=== PATIENT | female | born 1980 | race Caucasian/White ===

== ENCOUNTER 2019-07-31 08:14 | Outpatient (CLI) | payer BC, SELFPAY ==
--- NOTE | 2019-07-31 08:22 | CT_ITS ---
WS: [id number] CT TEMPORAL BONES TECHNIQUE: Noncontrast CT of the temporal bones with coronal and sagittal reformatted images. CLINICAL INFORMATION: CEREBROSPINAL FLUID LEAK COMPARISON: None. DLP: 786.[address] scans at [facility] use at least one of these dose optimization techniques: automat ed exposure control; mA and/or kV adjustment per patient size (includes targeted exams where dose is matched to clinical indication); or iterative reconstruction. FINDINGS: RIGHT: Mastoid air cells are well aerated. Normal external auditory canal. Ossicles are normal in appearance . Middle ear is well aerated. Normal tegmen tympani. Semicircular canals and cochlea are normal in ap pearance. Prussak's space is normal. Normal inner ear structures. Normal vestibular aqueduct. Facial nerve recess is normal. LEFT: Small amount mucosal thickening left posterior mastoid air cells. Normal external auditory canal. Oss icles are normal in appearance. Middle ear is well aerated. Normal tegmen tympani. Semicircular canal s and cochlea are normal in appearance. Prussak's space is normal. Normal inner ear structures. Jeanie l vestibular aqueduct. Facial nerve recess is normal. CT/CT temporal bone wo con* [id number] IMPRESSION: 1. Mastoid air cells are well aerated bilaterally. Trace mucosal thickening le ft mastoid air cells. 2. Middle ears well aerated. Ossicles are normal. 3. Normal scutum bilaterally. 4. Normal tegmen tympani bilaterally. 5. Normal inner ear structures. 6. Pneumatization of the petrous apex bilaterally.
--- NOTE | 2019-07-31 08:22 | CT_ITS ---
WS: [id number] CT SINUSES TECHNIQUE: Noncontrast CT of the paranasal sinuses with coronal and sagittal reformatted images. CLINICAL INFORMATION: OTHER DISORDERS OF THE NOSE AND NASAL SINUS COMPARISON: None. DLP: 338.[address] scans at [facility] use at least one of these dose optimization techniques: automat ed exposure control; mA and/or kV adjustment per patient size (includes targeted exams where dose is matched to clinical indication); or iterative reconstruction. FINDINGS: Right left nasal septal deviation measuring 4 to 5 mm with a leftward directed spur. Frontal sinuses are well aerated. Tiny retention cyst in the left frontal ethmoidal recess. Mastoid air cells well ae rated. Ethmoid air cells and sphenoid sinuses are well aerated. Maxillary sinuses are well aerated. M ild narrowing of the ostiomeatal units bilaterally which remain patent. Normal posterior nasopharynx. Partially visualized intracranial contents are unremarkable. CT/CT sinus wo con* [id number] IMPRESSION: 1. Right to left nasal septal deviation measuring 4 to 5 mm with a leftward di rected spur. 2. Paranasal sinuses and mastoid air cells are well aerated. 3. Tiny retention cyst left frontal ethmoidal recess. 4. Mild narrowing of the ostiomeatal regions bilaterally which remain patent.
== END 2019-07-31 08:15 | disposition home or self-care (01) ==
LOC: RADWPI 08:17
PROVIDERS: Family Provider Family Medicine; PCP Family Medicine; Visit Provider Specialist
DX: G96.0 Cerebrospinal fluid leak (principal); J34.89 Other specified disorders of nose and nasal sinuses; J34.2 Deviated nasal septum
CPT/HCPCS: 70480; 70486

== ENCOUNTER 2019-12-22 07:40 | Outpatient (CLI) | payer BC, SELFPAY ==
--- NOTE | 2019-12-22 07:47 | MM_ITS ---
WS: [id number] Bilateral screening digital mammogram, 12/22/2019 Clinical Data: SCREENING Comparison: None. Findings: The breast parenchymal pattern shows heterogeneous density No spiculated masses or clustered calcific ations are seen. There are no secondary signs of carcinoma. MM/[place] [id number] Impression: 1. Negative bilateral mammogram. 2. Recommend annual screening mammograms. BIRADS: 1-Negative FOLLOW UP: 1 Year Follow-up The CAD linen checker was used.
== END 2019-12-22 07:41 | disposition home or self-care (01) ==
PROVIDERS: PCP Family Medicine; Visit Provider Family Medicine
DX: Z12.31 Encounter for screening mammogram for malignant neoplasm of breast (principal)
CPT/HCPCS: 77067

== ENCOUNTER 2021-09-05 06:57 | Outpatient (CLI) | payer BC, SELFPAY ==
--- NOTE | 2021-09-05 07:20 | MM_ITS ---
WS: [id number] BILATERAL SCREENING DIGITAL BREAST TOMOSYNTHESIS MAMMOGRAM WITH CAD HISTORY: SCREENING COMPARISON: 12/22/2019 Bilateral CC and MLO views with tomosynthesis and synthetic mammography submitted. Computer aided det ection analyzed. Breast composition: The breasts are heterogeneously dense, which may obscure small masses. No suspici ous masses, microcalcifications or architectural distortion. Benign coarse calcification 6:00 RIGHT b reast. MM/[place] [id number] IMPRESSION: BI-RADS: 2-Benign FOLLOW UP: 1 Year Follow-up
== END 2021-09-05 06:58 | disposition home or self-care (01) ==
LOC: RAD 06:58
PROVIDERS: PCP Family Medicine; Visit Provider Clinical Nurse Specialist Adult Health
DX: Z12.31 Encounter for screening mammogram for malignant neoplasm of breast (principal)
CPT/HCPCS: 77063; 77067

== ENCOUNTER 2022-09-08 07:59 | Outpatient (CLI) | payer BC, SELFPAY ==
--- NOTE | 2022-09-08 | MM_ITS ---
WS: [id number] VIEWS: MLO and CC views both breasts. 3D digital tomosynthesis is also included in this exam. Comparison made with prior exam of 12/22/2019 and 09/05/2021. Findings: There was no sign of mass, architectural distortion or suspicious calcification in either breast. Th e breasts are heterogeneously dense which may obscure small masses MM/[place] [id number] Impression: BI-RADS: 2-Benign finding. FOLLOW-UP: 1 Year Follow-up This mammogram was also analyzed by the Computer Aided Detection System [employer].
== END 2022-09-08 08:00 | disposition home or self-care (01) ==
PROVIDERS: PCP Family Medicine; Visit Provider Family Medicine
DX: Z12.31 Encounter for screening mammogram for malignant neoplasm of breast (principal)
CPT/HCPCS: 77063; 77067

== ENCOUNTER 2024-04-21 08:51 | Outpatient (CLI) | payer BC, SELFPAY ==
--- NOTE | 2024-04-21 08:56 | MM_ITS ---
WS: [id number] BILATERAL SCREENING DIGITAL TOMOSYNTHESIS MAMMOGRAM WITH CAD HISTORY: SCREENING COMPARISON: 09/08/2022, 09/05/2021, 12/22/2019 Bilateral CC and MLO views with tomosynthesis and synthetic mammography submitted. Computer aided detection analyzed. Breast composition: The breasts are heterogeneously dense, which may obscure small masses. No suspicious masses, microcalcifications or architectural distortion. Benign calcifications posterior RIGHT breast. MM/MM scr BI tomosynthesis [id number] IMPRESSION: BI-RADS: 2 - Benign FOLLOW UP: 1 Year Follow-up
== END 2024-04-21 08:52 | disposition home or self-care (01) ==
LOC: RAD 08:52
PROVIDERS: PCP Family Medicine; Visit Provider Family Medicine
DX: Z12.31 Encounter for screening mammogram for malignant neoplasm of breast (principal); R92.333 Mammographic heterogeneous density, bilateral breasts; R92.1 Mammographic calcification found on diagnostic imaging of breast
CPT/HCPCS: 77063; 77067

== ENCOUNTER 2024-11-20 09:43 | Day surgery (SDC) | payer BC, SELFPAY ==
[2024-11-20] VITALS (9 sets, daily range): BP systolic 101–117; BP diastolic 56–66; PULSE 54–81; RESP 14–18; TEMP 36.1–36.9; O2SAT 97–99; BMI 27.4
[2024-11-20] MEDS: acetaminophen 1,000 MG/100 ML PIGGYBACK 400 MG IV (10:20)
--- NOTE | 2024-11-20 10:43 | P.HPUD_ITS ---
Surgery/Procedure H&P Update DATE OF PROCEDURE: November 20, 2024 DATE H&P PERFORMED: 11/16/24 H&P UPDATE INFORMATION: I have reviewed H&P completed within last 30 days, I have examined patient prior to procedure, No changes to prior documentation, H&P is in [facility] EMR on date indicated and Risks and benefits of the procedure reviewed PREOP DIAGNOSIS: Left distal fibular fracture PLANNED PROCEDURE: Operation Date: 11/20/24 11:15 Proposed Procedures p ORIF Ankle ORIF Distal Fibula(Left) - Van Rhodes DPM s Ankle Arthroscopy(Left) - Van Rhodes DPM
[2024-11-20] MEDS: ceFAZolin 2,000 mg SDV 2000 MG IVP (10:50)
--- NOTE | 2024-11-20 11:21 | XR_ITS ---
WS: [id number] INTRAOPERATIVE TECHNIQUE: 3 Spot fluoroscopic images for intraoperative purposes. FLUOROSCOPY TIME: 1 minute 27 seconds CLINICAL INFORMATION: Left ankle arthroscopy, left ankle ORIF distal fibula FINDINGS: Intraoperative plate and screw fixation fibula XR/XR ankle LT 2V [id number] IMPRESSION: Images obtained for intraoperative purposes.
[2024-11-20] MEDS: BUPivacaine 0.5% INJ 30 mL INJECTION (11:24)
--- NOTE | 2024-11-20 11:57 | ANES.PROC ---
Anesthesia Procedures Procedure/Date: 11/20/24 Nerve Block ^: Nerve Block 1: Main Anesthesia: general anesthesia Time Out Performed: Yes Consent: requested by attending/covering physician and from patient Laterality: Left Nerve block location: popliteal Anesthesia monitors applied: pulse oximetry, EKG, BP cuff and oxygen Nerve block position: supine Anesthetic Used: ropivicaine 0.5% Amount of anesthesia used (mL): 25 Ultrasound used to: recognize landmarks Nerve Stimulator Used?: Yes Interscalene/Femoral BLK: other needle (pjunk 4inch) Injection: neg aspiration of heme Patient Tolerated Procedure: well Complications: none Additional Comments: decadron 4mg added to block
--- NOTE | 2024-11-20 12:15 | P.BOP_ITS ---
Date of procedure: 11/20/24 Surgeon name: Dr. Van Rhodes, DPM Conference And Event Organiser(s) name(s): Montserrat Lawler Procedure(s) performed: Left ankle arthroscopy, left ankle ORIF distal fibula Description of findings: Left distal fibular fracture Estimated blood loss: 5cc Tourniquet time: 55 minutes Specimen(s) removed: none Post-operative diagnosis: left distal fibular fracture
--- NOTE | 2024-11-20 13:34 | ANE.PACU2 ---
Inpatient post-anesthesia follow up: Airway intact: Yes Vital signs: Temperature 97.2 F Pulse Rate 55 Respiratory Rate 17 Blood Pressure 101/59 Pulse Oximetry 97 Oxygen Delivery Me thod Room Air Oxygen Flow Rate Fraction of Inspir ed Oxygen Hydration adequate: Yes Nausea and vomiting: No Pain level: 1 Mental status: Baseline
--- NOTE | 2024-11-20 19:19 | P.OP_ITS ---
Operative Report Date of procedure: November 20, 2024 Surgeon: Van Rhodes DPM Procedure: Date of procedure: 11/20/2024 Pre-op diagnosis: Left ankle distal fibula fracture Post-op diagnosis: Same Post-op findings: No intra-articular loose body or osteochondral defect Procedure done: 1. ORIF left distal fibula CPT 68356 2. Left ankle arthroscopy CPT 85510 Implants: Anatomic fibular plate [employer] with corresponding locking and nonlocking screws Specimens removed: None Surgeon: Dr. Van Rhodes DPM Enrichment Assistant: Montserrat Lawler Estimated blood loss: 5 cc Tourniquet time: 55 minutes Complications: None Patient is a 44-year-old female that has a history of left distal fibula fracture. The extent of the injury warrants surgical intervention. A lengthy discussion regarding the procedure, including risks and complications has been had with the patient and is noted in the recent clinic note. Written and verbal consent have been obtained. All patient questions have been answered to the patient?s satisfaction. No written or verbal guarantees have been given or implied. The patient has been NPO since midnight. The history has been reviewed and the history and physical is current. The signed consent was confirmed and placed in the patient chart. Patient imaging has been reviewed and is consistent with the diagnosis. Under mild sedation, the patient was brought into the operating room and placed on the table in the supine position. IV antibiotics were given by the anesthesia team as preoperative surgical prophylaxis. General sedation was then performed by the anesthesiateam. Popliteal block was performed Anesthesia Department. A pneumatic tourniquet was then placed about the left thigh. The operative extremity was then prepped and draped in the usual fashion. The extremity was then elevated and exsanguinated before the tourniquet was inflated to 325 mmHg. After inflation, the following procedure was then performed. Attention was directed to the left ankle where anteromedial portal was estab lished using a #11 blade. This was medial to the tibialis anterior tendon. Mosquito hemostat was used to dissect down to the level of the ankle joint capsule which was penetrated. Trocar and cannula were then inserted into the anteromedial portal. Anterolateral portal was then established using a #11 blade. Arthroscopy was used to examine the inside of the left ankle joint. No visible osteochondral defect was visualized. Synovitis was noted lateral aspect of the ankle surrounding the fracture site with hematoma formation. Shaver was inserted into the anterolateral portal to perform synovectomy and to clean up hematoma formation. Once determined that no osteochondral defect was visualized, the ankle scope and shaver was removed from the ankle joint. Portals were closed using 4-0 nylon in horizontal mattress fashion. Attention was then directed to the lateral aspect of the left ankle where a 7 cm incision was made overlying the fibula. Dissection was carried down through subcutaneous and superficial fascia to the level of the periosteum which was incised using a #15 blade to expose the underlying distal fibula fracture. Hematoma of the fracture site was removed using a combination of rongeur, dental pick and curette. After removal of hematoma the site was irrigated with sterile saline. The fibula was then reduced to appropriate anatomic position. K wires were used for provisional fixation before an interfrag screw was driven across the fracture using a 3.0 headed screw from [employer]. Next an Anatomic fibular plate was applied to the lateral aspect of the fibula. Good position of the plate was visualized before the distal holes of the plate were filled per manufacture protocol. Proximal holes of the plate were then drilled and filled per manufacture protocol. Position of plate and screws was noted clinically as well as on C-arm imaging. Syndesmosis was stressed under live fluoroscopy and was noted to be intact. Incision site was irrigated with copious muscle sterile saline before attention was directed to closure. Deep tissue was closed with 2- 0 Vicryl followed by subcuticular closure with 3-0 Vicryl and skin closure with 3-0 nylon in horizontal mattress fashion. Tourniquet was let down and good hyperemic response was noted to all digits of the left foot. Incision site was dressed with Xeroform, 4 x 4 gauze, Kerlix, Murali. The patient tolerated the procedure and anesthesia well and without complication. The patient was transported from the operating room to the recovery room with vital signs stable and vascular status intact to all digits of the left foot. The patient was given both written and verbal instructions to remain nonweightbearing to the operative extremity, to keep dressings/splint clean, dry and intact and to take pain medication as directed. The patient will follow-up in the outpatient setting at their scheduled appointment. The patient was discharged with my personal number and was instructed to call if any questions or issues should arise. They were discharged home once anesthesia criteria was met.
== END 2024-11-20 13:34 | disposition home or self-care (01) ==
PROVIDERS: PCP Family Medicine; Visit Provider Podiatrist Foot & Ankle Surgery
PROC: (CPT 27792; principal; 2024-11-20 11:15)
PROC: (CPT 27792; 2024-11-20 11:15)
DX: S82.832A Other fracture of upper and lower end of left fibula, initial encounter for closed fracture (principal); Y93.02 Activity, running
CPT/HCPCS: 27792; 29897; 73600; 76000; C1713; J0131; J0690; J2250; J2405; J2704; J3010; J3490; J7030; J9999

== ENCOUNTER → 2024-12-05 07:58 | Outpatient (BNVA) | payer BC, SELFPAY | PROVIDERS: PCP Family Medicine; Visit Provider Podiatrist Foot & Ankle Surgery | DX: S82.832A Other fracture of upper and lower end of left fibula, initial encounter for closed fracture (principal); X58.XXXA Exposure to other specified factors, initial encounter | CPT/HCPCS: 73610 ==

== ENCOUNTER → 2024-12-18 15:14 | Outpatient (BNVA) | payer BC, SELFPAY | PROVIDERS: PCP Family Medicine; Visit Provider Podiatrist Foot & Ankle Surgery | DX: S82.832A Other fracture of upper and lower end of left fibula, initial encounter for closed fracture (principal); X58.XXXA Exposure to other specified factors, initial encounter | CPT/HCPCS: 73610 ==

== ENCOUNTER → 2025-01-01 14:20 | Outpatient (BNVA) | payer BC, SELFPAY | PROVIDERS: PCP Family Medicine; Visit Provider Podiatrist Foot & Ankle Surgery | DX: S82.832A Other fracture of upper and lower end of left fibula, initial encounter for closed fracture (principal); X58.XXXA Exposure to other specified factors, initial encounter | CPT/HCPCS: 73610; 73630 ==